=== PATIENT | male | born 1965 | race Caucasian/White ===

== ENCOUNTER 2025-06-13 10:52 | Inpatient (IN) | payer OTHER ==
[~2025-06-13] VITALS: Ht 177.8 cm; Wt 109.8 kg
[2025-06-13] MEDS ORDERED: LORAZEPAM 2 MG/1 ML VIAL ONE (11:29)
[2025-06-13 11:32] LABS: PLATELET COUNT (AUTO) 189 K/uL (152-348); RED BLOOD CELL COUNT(AUTO) 3.23 MIL/uL (4.06-5.63); RED CELL DISTRIBUTION WIDTH 22.0 % (12.1-16.2); WHITE BLOOD COUNT (AUTO) 8.1 K/uL (3.6-10.2)
[2025-06-13] MEDS: LORAZEPAM 2 MG/1 ML VIAL IV ONE ×2 (11:36→11:37)
[2025-06-13 11:45] LABS: CREATININE 0.8 mg/dL (0.6-1.3); SODIUM SERUM 148 mmol/L (136-145); UREA NITROGEN, BLOOD 31 mg/dL (7-18)
[2025-06-13 11:49] LABS: ASPARTATE AMINOTRANSFERASE 16 U/L (15-37); ETHANOL < 3 MG/DL (0-10); TOTAL PROTEIN, SERUM 5.8 g/dL (6.4-8.2)
[2025-06-13] MEDS ORDERED: DEXA4TAB PO ×2 (12:04)
[2025-06-13] MEDS ORDERED: BICA50TA49 PO (12:04)
[2025-06-13] MEDS ORDERED: BISA10SU61 RC (12:04)
[2025-06-13] MEDS ORDERED: ATOR40TA PO (12:04)
[2025-06-13] MEDS ORDERED: NA P133E RC (12:04)
[2025-06-13] MEDS ORDERED: ACET-3117 PO (12:04)
[2025-06-13] MEDS ORDERED: ASPI-1169 PO (12:04)
[2025-06-13] MEDS: IV NORMAL SALINE 1000 ML BAG IV ONE (12:10)
[2025-06-13] MEDS ORDERED: TRAM50TA2 PO (12:17)
[2025-06-13] MEDS ORDERED: MAGN400O6 PO (12:17)
[2025-06-13] MEDS ORDERED: TEMA15CA PO (12:17)
[2025-06-13] MEDS ORDERED: HYDR-3972 PO (12:17)
[2025-06-13] MEDS ORDERED: POLY119P2 PO (12:17)
[2025-06-13] MEDS ORDERED: HYDR-4077 PO (12:17)
[2025-06-13] MEDS ORDERED: HYDR-3980 PO (12:17)
[2025-06-13] MEDS ORDERED: NALO4SPR NS (12:17)
[2025-06-13] MEDS ORDERED: GABA-532 PO (12:17)
[2025-06-13] MEDS ORDERED: METH-806 PO (12:17)
[2025-06-13 12:41] LABS: *BILIRUBIN,URIN NEGATIVE (NEGATIVE); *BLOOD, URINE NEGATIVE (NEGATIVE); *CLARITY,URINE CLEAR (CLEAR); *COLOR,URINE YELLOW (YELLOW); *KETONES,URINE NEGATIVE (NEGATIVE); *PROTEIN,URINE 1+ (NEGATIVE); *UROBILINOGEN,URINE 1.0 E.U./dl (NORMAL); LEUKOCYTE ESTERASE ,URINE NEGATIVE (NEGATIVE); NITRITE, URINE NEGATIVE (NEGATIVE); UGLUCOSE NEGATIVE (NEGATIVE)
[2025-06-13 12:54] LABS: *AMPHETAMINE, URINE NEGATIVE (NEGATIVE); *BARBITURATE, URINE NEGATIVE (NEGATIVE); *BENZODIAZEPINE, URINE NEGATIVE (NEGATIVE); *CANNABINOID, URINE NEGATIVE (NEGATIVE); *COCCAINE, URINE NEGATIVE (NEGATIVE); *OPIATE, URINE POSITIVE (NEGATIVE); *PHENCYCLIDINE SCREEN,URINE NEGATIVE (NEGATIVE); FENTANYL, URINE NEGATIVE (NEGATIVE)
[2025-06-13] MEDS ORDERED: MORPHINE SULFATE 2 MG/1 ML DISP.SYRIN ONE (14:36)
[2025-06-13] MEDS: MORPHINE SULFATE 2 MG/1 ML DISP.SYRIN IV ONE (14:49)
[2025-06-13] MEDS ORDERED: REMEDY ESSENTIAL ZINC PASTE 113 GM TP PRN (15:00)
[2025-06-13] MEDS ORDERED: ONDANSETRON 4 MG/2 ML VIAL IV PRN (15:00)
[2025-06-13 15:30] VITALS: BP 142/52; TEMP 98.1; O2SAT 95
[2025-06-13] MEDS: IV 1/2NS 1000 ML 1,000 ML IV PRN (16:33)
[2025-06-13] MEDS: MORPHINE SULFATE 2 MG/1 ML DISP.SYRIN IV PRN (18:51)
[2025-06-13 19:50] VITALS: BP 117/73; TEMP 99.7; O2SAT 96
[2025-06-13] MEDS: LORAZEPAM 1 MG TABLET PO PRN (22:16)
[2025-06-13] MEDS: DOCUSATE SODIUM 250 MG CAPSULE PO SCH (22:16)
[2025-06-13] MEDS: ENOXAPARIN SODIUM 40 MG/0.4 ML DISP.SYRIN SQ SCH (22:18)
[2025-06-13] MEDS: ACETAMINOPHEN 325 MG TABLET PO PRN (22:25)
[2025-06-13] MEDS: ZOLPIDEM 5 MG TABLET PO PRN (23:46)
[2025-06-14 00:25] VITALS: BP 144/63; TEMP 98.8; O2SAT 96
[2025-06-14] MEDS: HYDROCODONE/APAP 10-325 MG TABLET PO PRN (03:33)
[2025-06-14 04:26] VITALS: BP 142/61; TEMP 98.3; O2SAT 96
[2025-06-14] MEDS: PANTOPRAZOLE SODIUM 40 MG TABLET.DR PO SCH (06:29)
[2025-06-14 06:51] LABS: PLATELET COUNT (AUTO) 166 K/uL (152-348); RED BLOOD CELL COUNT(AUTO) 3.07 MIL/uL (4.06-5.63); RED CELL DISTRIBUTION WIDTH 21.7 % (12.1-16.2); WHITE BLOOD COUNT (AUTO) 6.4 K/uL (3.6-10.2)
[2025-06-14 07:27] VITALS: BP 163/72; TEMP 98; O2SAT 97
[2025-06-14 07:29] LABS: CREATININE 0.6 mg/dL (0.6-1.3); SODIUM SERUM 145 mmol/L (136-145); UREA NITROGEN, BLOOD 27 mg/dL (7-18)
[2025-06-14 08:45] LABS: LYMPHOCYTES % (MANUAL) 24 % (20-40); MONOCYTES % (MANUAL) 2 % (2-10); MYELOCYTES % 1 % (0-0); NEUTROPHILS % (MANUAL) 73 % (42-75); PLATELET ESTIMATE ADEQUATE
[2025-06-14 08:49] LABS: NUCLEATED RED BLOOD CELLS 1.0 /100WBC
[2025-06-14 10:42] VITALS: BP 134/94; TEMP 98.2; O2SAT 94
[2025-06-14] MEDS ORDERED: LORAZEPAM 1 MG TABLET PO PRN (11:00)
[2025-06-14] MEDS: MEDIHONEY= THERAHONEY 1.5 OZ TUBE TOP SCH (11:04)
[2025-06-14] MEDS: CLONAZEPAM 0.5 MG TABLET PO SCH (11:37)
[2025-06-14] MEDS: SERTRALINE HCL 50 MG TABLET PO SCH (11:37)
[2025-06-14] MEDS ORDERED: MIRALAX 17 GM POWD.PACK PO PRN (15:30)
[2025-06-14] MEDS ORDERED: BISACODYL 10 MG SUPP.RECT RC PRN (15:30)
[2025-06-14] MEDS ORDERED: MAGNESIUM HYDROXIDE 30 ML LIQUID UDC PO PRN (15:30)
[2025-06-14] MEDS ORDERED: POLYETHYLENE GLYCOL 3350 238 GM POWDER PO PRN (15:30)
[2025-06-14] MEDS ORDERED: FLEET ENEMA 133 ML BOTTLE RC PRN (15:30)
[2025-06-14 15:54] VITALS: BP 144/67; TEMP 98; O2SAT 94
[2025-06-14] MEDS: GABAPENTIN 100 MG CAPSULE PO SCH (17:08)
[2025-06-14] MEDS: METHOCARBAMOL 500 MG TABLET PO SCH (17:08)
[2025-06-14] MEDS: DEXAMETHASONE 4 MG TABLET PO SCH (17:08)
[2025-06-14 19:52] VITALS: BP 152/90; TEMP 99; O2SAT 94
[2025-06-14] MEDS: ATORVASTATIN 40 MG TABLET PO SCH (20:06)
[2025-06-14] MEDS: LORAZEPAM 0.5 MG TABLET PO PRN (20:06)
[2025-06-14] MEDS: BICALUTAMIDE 50 MG TABLET PO SCH (20:09)
[2025-06-15 06:30] VITALS: BP 137/65; TEMP 97.8; O2SAT 96
[2025-06-15] MEDS: IV 1/2NS 1000 ML 1,000 ML IV PRN (06:31)
[2025-06-15 06:44] LABS: PLATELET COUNT (AUTO) 169 K/uL (152-348); RED BLOOD CELL COUNT(AUTO) 3.02 MIL/uL (4.06-5.63); RED CELL DISTRIBUTION WIDTH 20.8 % (12.1-16.2); WHITE BLOOD COUNT (AUTO) 6.1 K/uL (3.6-10.2)
[2025-06-15 06:53] LABS: CREATININE 0.5 mg/dL (0.6-1.3); SODIUM SERUM 139 mmol/L (136-145); UREA NITROGEN, BLOOD 23 mg/dL (7-18)
[2025-06-15] MEDS: ARGININE/GLUTAMINE/CALCIUM BMB 1 EACH POWD.PACK PO SCH (08:05)
[2025-06-15] MEDS: ASPIRIN 81 MG TAB.CHEW PO SCH (08:05)
[2025-06-15 08:38] LABS: BAND % (MANUAL) 1 % (0-10); LYMPHOCYTES % (MANUAL) 14 % (20-40); MONOCYTES % (MANUAL) 4 % (2-10); NEUTROPHILS % (MANUAL) 81 % (42-75)
[2025-06-15 08:39] LABS: PLATELET ESTIMATE ADEQUATE
[2025-06-15] MEDS ORDERED: DEXAMETHASONE 4 MG TABLET PO SCH (09:00)
[2025-06-15 10:44] VITALS: BP 119/63; TEMP 98.2; O2SAT 96
[2025-06-15] MEDS: MAGNESIUM HYDROXIDE 30 ML LIQUID UDC PO PRN (11:53)
[2025-06-15 15:53] VITALS: BP 141/67; TEMP 97.8; O2SAT 94
[2025-06-15 21:45] VITALS: BP 137/71; TEMP 97.9
[2025-06-15] MEDS: QUETIAPINE FUMARATE 25 MG TABLET PO SCH (21:51)
[2025-06-16 05:47] VITALS: BP 162/85; TEMP 98.5
[2025-06-16 06:43] LABS: PLATELET COUNT (AUTO) 170 K/uL (152-348); RED BLOOD CELL COUNT(AUTO) 3.08 MIL/uL (4.06-5.63); RED CELL DISTRIBUTION WIDTH 21.9 % (12.1-16.2); WHITE BLOOD COUNT (AUTO) 6.1 K/uL (3.6-10.2)
[2025-06-16 06:55] LABS: CREATININE 0.6 mg/dL (0.6-1.3); SODIUM SERUM 141 mmol/L (136-145); UREA NITROGEN, BLOOD 19 mg/dL (7-18)
[2025-06-16 08:25] VITALS: BP 154/79; TEMP 97.5; O2SAT 95
[2025-06-16 09:02] LABS: LYMPHOCYTES % (MANUAL) 15 % (20-40); METAMYELOCYTES % 1 % (0-1); MONOCYTES % (MANUAL) 4 % (2-10); MYELOCYTES % 2 % (0-0); NEUTROPHILS % (MANUAL) 78 % (42-75); PLATELET ESTIMATE ADEQUATE
[2025-06-16 11:39] VITALS: BP 145/63; TEMP 97.5; O2SAT 95
[2025-06-16] MEDS ORDERED: GADOTERATE MEGLUMINE 10 MMOL/20 ML VIAL IV ONE (14:05)
[2025-06-16 15:40] VITALS: BP 140/68; TEMP 97.8; O2SAT 97
[2025-06-16] MEDS: SULFAMETH/TRIMETH 800/160 MG TABLET PO SCH (17:25)
[2025-06-16 19:00] VITALS: BP 149/54; TEMP 97.9; O2SAT 96
[2025-06-17] MEDS: TEMAZEPAM 15 MG CAPSULE PO PRN (02:27)
[2025-06-17 06:00] VITALS: BP 157/83; TEMP 98; O2SAT 96
[2025-06-17 06:58] LABS: PLATELET COUNT (AUTO) 190 K/uL (152-348); RED BLOOD CELL COUNT(AUTO) 3.30 MIL/uL (4.06-5.63); RED CELL DISTRIBUTION WIDTH 23.4 % (12.1-16.2); WHITE BLOOD COUNT (AUTO) 7.4 K/uL (3.6-10.2)
[2025-06-17 07:07] LABS: CREATININE 0.6 mg/dL (0.6-1.3); SODIUM SERUM 139 mmol/L (136-145); UREA NITROGEN, BLOOD 21 mg/dL (7-18)
[2025-06-17 08:36] LABS: LYMPHOCYTES % (MANUAL) 9 % (20-40); MONOCYTES % (MANUAL) 2 % (2-10); MYELOCYTES % 1 % (0-0); NEUTROPHILS % (MANUAL) 88 % (42-75); NUCLEATED RED BLOOD CELLS 1.0 /100WBC
[2025-06-17 08:37] LABS: PLATELET ESTIMATE ADEQUATE
[2025-06-17] MEDS: SERTRALINE HCL 50 MG TABLET PO SCH (09:15)
[2025-06-17 11:32] VITALS: BP 152/7; TEMP 98; O2SAT 96
[2025-06-17 15:44] VITALS: BP 150/75; TEMP 97.8; O2SAT 96
[2025-06-17 19:00] VITALS: BP 156/80; TEMP 98.5; O2SAT 95
[2025-06-18 06:00] VITALS: BP 135/81; TEMP 97.6; O2SAT 96
[2025-06-18 11:34] VITALS: BP 137/75; TEMP 98.2; O2SAT 95
[2025-06-18 15:45] VITALS: BP 116/71; TEMP 98.2; O2SAT 95
[2025-06-18 19:15] VITALS: BP 151/60; TEMP 98.9; O2SAT 96
[2025-06-18] MEDS: HYDROCODONE/APAP 5-325MG TABLET PO PRN (19:57)
[2025-06-18] MEDS: LOSARTAN POTASSIUM 50 MG TABLET PO SCH (20:43)
[2025-06-19 06:03] VITALS: BP 121/71; TEMP 98.1; O2SAT 91
[2025-06-19 07:06] LABS: PLATELET COUNT (AUTO) 202 K/uL (152-348); RED BLOOD CELL COUNT(AUTO) 3.50 MIL/uL (4.06-5.63); RED CELL DISTRIBUTION WIDTH 23.3 % (12.1-16.2); WHITE BLOOD COUNT (AUTO) 6.9 K/uL (3.6-10.2)
[2025-06-19 07:18] LABS: CREATININE 0.6 mg/dL (0.6-1.3); SODIUM SERUM 144 mmol/L (136-145); UREA NITROGEN, BLOOD 18 mg/dL (7-18)
[2025-06-19 08:54] LABS: BAND % (MANUAL) 3 % (0-10); LYMPHOCYTES % (MANUAL) 5 % (20-40); METAMYELOCYTES % 2 % (0-1); MONOCYTES % (MANUAL) 1 % (2-10); NEUTROPHILS % (MANUAL) 89 % (42-75)
[2025-06-19 11:35] VITALS: BP 113/61; TEMP 98.6; O2SAT 95
[2025-06-19 15:35] VITALS: BP 103/50; TEMP 98.3; O2SAT 95
[2025-06-19] MEDS: ENSURE ENLIVE (VAN) 240 ML LIQUID PO SCH (17:06)
[2025-06-19 19:56] VITALS: BP 130/68; TEMP 97.9; O2SAT 93
[2025-06-20 07:16] VITALS: BP 146/69; TEMP 97.7; O2SAT 95
[2025-06-20 11:03] LABS: ASPARTATE AMINOTRANSFERASE 14.0 U/L (15-37); TOTAL PROTEIN, SERUM 6.4 g/dL (6.4-8.2)
[2025-06-20 11:49] VITALS: BP 113/57; TEMP 97.9; O2SAT 98
[2025-06-20 16:02] VITALS: BP 131/70; TEMP 97.8; O2SAT 97
[2025-06-20 19:30] VITALS: BP 124/58; TEMP 98.3; O2SAT 91
[2025-06-21 06:46] VITALS: BP 130/62; TEMP 98; O2SAT 95
[2025-06-21 07:52] VITALS: BP 142/68; TEMP 98.1; O2SAT 96
[2025-06-21] MEDS ORDERED: ATOR10TA PO (10:44)
[2025-06-21] MEDS ORDERED: ACET325T53 PO (10:44)
[2025-06-21] MEDS ORDERED: DOCU250C14 PO (10:45)
[2025-06-21] MEDS ORDERED: Lactose-Free Food PO (10:45)
[2025-06-21] MEDS ORDERED: QUET25TA36 PO (10:45)
[2025-06-21] MEDS ORDERED: NUTR1PAC14 PO (10:45)
[2025-06-21] MEDS ORDERED: BISA10SU12 RC (10:45)
[2025-06-21] MEDS ORDERED: MAGN400O6 PO (10:45)
[2025-06-21] MEDS ORDERED: ASCO500C18 PO (10:45)
[2025-06-21] MEDS ORDERED: SERT-439 PO (10:45)
[2025-06-21] MEDS ORDERED: GLIP5TAB13 PO (10:45)
[2025-06-21] MEDS ORDERED: LOSA50TA3 PO (10:45)
[2025-06-21] MEDS ORDERED: PANT40TA49 PO (10:45)
[2025-06-21] MEDS ORDERED: ZINC220T3 PO (10:45)
[2025-06-21] MEDS ORDERED: HYDR-3980 PO (10:45)
[2025-06-21] MEDS ORDERED: POLY17PO4 PO (10:45)
[2025-06-21 12:00] VITALS: BP 93/60; TEMP 97.8; O2SAT 95
[2025-06-21 12:23] VITALS: BP 119/70; O2SAT 96
[2025-06-21] MEDS: BACITRACIN/POLYMYXIN B OINT 15 GM TUBE TOP SCH (12:51)
[2025-06-21 13:07] VITALS: BP 119/70
== END 2025-06-21 14:05 | DRG 92 ==
LOC: ER 10:52 → TELE3 14:38 → MEDSURG3 06-14 13:10
PROVIDERS: ATTEND Internal Medicine
DX: G92.8 Other toxic encephalopathy (principal); C78.01 Secondary malignant neoplasm of right lung; C79.51 Secondary malignant neoplasm of bone; E87.0 Hyperosmolality and hypernatremia; E44.1 Mild protein-calorie malnutrition; N39.0 Urinary tract infection, site not specified; C78.02 Secondary malignant neoplasm of left lung; D68.69 Other thrombophilia; T40.605A Adverse effect of unspecified narcotics, initial encounter; Y92.129 Unspecified place in nursing home as the place of occurrence of the external cause; E86.0 Dehydration; C61 Malignant neoplasm of prostate; E66.01 Morbid (severe) obesity due to excess calories; D64.9 Anemia, unspecified; E78.5 Hyperlipidemia, unspecified; E88.09 Other disorders of plasma-protein metabolism, not elsewhere classified; Z66 Do not resuscitate; Z87.891 Personal history of nicotine dependence; Z98.1 Arthrodesis status; Z74.09 Other reduced mobility; F32.A Depression, unspecified; R53.1 Weakness; Z79.52 Long term (current) use of systemic steroids; I12.9 Hypertensive chronic kidney disease with stage 1 through stage 4 chronic kidney disease, or unspecified chronic kidney disease; N18.9 Chronic kidney disease, unspecified; M54.9 Dorsalgia, unspecified; Z68.34 Body mass index [BMI] 34.0-34.9, adult; R25.1 Tremor, unspecified; S51.801A Unspecified open wound of right forearm, initial encounter; X58.XXXA Exposure to other specified factors, initial encounter; Y93.9 Activity, unspecified; F39 Unspecified mood [affective] disorder; F43.23 Adjustment disorder with mixed anxiety and depressed mood; F10.21 Alcohol dependence, in remission; B96.89 Other specified bacterial agents as the cause of diseases classified elsewhere; S30.91XA Unspecified superficial injury of lower back and pelvis, initial encounter; R94.31 Abnormal electrocardiogram [ECG] [EKG]; N40.1 Benign prostatic hyperplasia with lower urinary tract symptoms; E11.22 Type 2 diabetes mellitus with diabetic chronic kidney disease
CPT/HCPCS: 36415; 70030-TC; 70450; 70553; 71045; 83735; 84100; 84443; 85025; 85730; 87077; 87086; 97535-GO-CO; A4663; A9575; G0378; G0480; J1650; J2060; J2270; J7040; J8540